=== PATIENT | female | born 1965 | race Caucasian/White ===

== ENCOUNTER 2017-08-16 09:10 | Inpatient (IN) | payer MEDICARE, OTHER ==
[2017-08-16] MEDS: ALBUTEROL SULFATE 2.5 MG/3 ML NEBU. CONT NEB (10:01)
[2017-08-16] MEDS: methylPREDNISolone SOD SUCC PF 125 MG/2 ML VIAL. IV (10:09)
[2017-08-16 10:14] LABS: BASO % 0 % (0-3); EOS % 0 % (0-3); HEMATOCRIT 42.1 % (36.0-47.0); HEMOGLOBIN 14.1 g/dL (12.0-15.5); LYMPH # 0.6 x10^3/uL (1.0-4.8); LYMPH % 12 % (24-48); MEAN CORPUSCULAR HEMOGLOBIN 29 pg (25-35); MEAN CORPUSCULAR HGB CONC 34 g/dL (31-37); MEAN CORPUSCULAR VOLUME 86 fL (79-100); MONO # 1.2 x10^3/uL (0.0-1.1); MONO % 24 % (0-9); NEUT # 3.1 x10^3uL (1.8-7.7); NEUT % 63 % (31-73); PLATELET COUNT 259 x10^3/uL (140-400); RED BLOOD COUNT 4.93 x10^6/uL (3.50-5.40); RED CELL DISTRIBUTION WIDTH 15.2 % (11.5-14.5); WHITE BLOOD COUNT 4.9 x10^3/uL (4.0-11.0)
[2017-08-16 10:18] LABS: ADD MAN DIFF? YES
[2017-08-16 10:22] LABS: ANION GAP 11 (6-14); BLOOD UREA NITROGEN 8 mg/dL (7-20); BUN/CREATININE RATIO 16 (6-20); CALCIUM 8.4 mg/dL (8.5-10.1); CARBON DIOXIDE 26 mmol/L (21-32); CHLORIDE 95 mmol/L (98-107); CREATININE 0.5 mg/dL (0.6-1.0); GFR 129.6; GLUCOSE 109 mg/dL (70-99); SODIUM 132 mmol/L (136-145)
[2017-08-16 10:28] LABS: ALBUMIN 3.2 g/dL (3.4-5.0); ALBUMIN/GLOBULIN RATIO 0.9 (1.0-1.7); ALK PHOS 64 U/L (46-116); ALT (SGPT) 25 U/L (14-59); AST (SGOT) 34 U/L (15-37); TOTAL BILIRUBIN 0.2 mg/dL (0.2-1.0); TOTAL PROTEIN 6.6 g/dL (6.4-8.2)
[2017-08-16 10:29] LABS: POTASSIUM 4.5 mmol/L (3.5-5.1)
[2017-08-16 10:30] LABS: LACTIC ACID 0.8 mmol/L (0.4-2.0)
[2017-08-16] MEDS ORDERED: VANCOMYCIN 1.5 GM in IV DEXTROSE 5 %-0.2 % NACL 500 ML IV (11:45)
[2017-08-16] MEDS: VANCOMYCIN 1.5 GM in IV DEXTROSE 5 %-0.2 % NACL 500 ML IV (12:10)
[2017-08-16] MEDS: VANCOMYCIN PER PHARMACY MC (13:30)
[2017-08-16 13:44] LABS: % BANDS 6 % (0-9); % LYMPHS 14 % (24-48); % MONOS 10 % (0-10); % SEGS 70 % (35-66); PLT ESTIMATE ADEQUATE (ADEQUATE)
[2017-08-16] MEDS ORDERED: ONDANSETRON PF 4 MG/2 ML VIAL. IV (13:45)
[2017-08-16] MEDS: IV NORMAL SALINE 1000ML BAG 1,000 ML IV ×2 (16:05→22:10)
[2017-08-16] MEDS ORDERED: CEFEPIME HCL 1 GM in IV DEXTROSE 5% 50 ML IV (21:00)
[2017-08-16] MEDS: CEFEPIME HCL IV Push 1 GM VIAL. IVP (21:58)
[2017-08-16] MEDS: IPRATRPIUM/ALBUTEROL 0.5/2.5MG 3 ML NEBU. NEB (23:16)
[2017-08-17] MEDS ORDERED: VANCOMYCIN 1 GM in IV 1/2 NORMAL SALINE 250 ML IV
[2017-08-17] MEDS: BENZOCAINE/MENTHOL LOZENGE. PO ×3 (00:40→17:09)
[2017-08-17] MEDS: IV NORMAL SALINE 1000ML BAG 1,000 ML IV (01:55)
[2017-08-17] MEDS: HYDROcodone/APAP 5/325MG 1 TAB TABLET PO ×4 (01:59→21:13)
[2017-08-17 05:02] LABS: ADD MAN DIFF? NO
[2017-08-17 05:34] LABS: BASO % 0 % (0-3); EOS % 0 % (0-3); HEMOGLOBIN 13.7 g/dL (12.0-15.5); LYMPH # 0.6 x10^3/uL (1.0-4.8); LYMPH % 19 % (24-48); MEAN CORPUSCULAR HEMOGLOBIN 29 pg (25-35); MEAN CORPUSCULAR HGB CONC 33 g/dL (31-37); MEAN CORPUSCULAR VOLUME 86 fL (79-100); MONO # 0.6 x10^3/uL (0.0-1.1); MONO % 20 % (0-9); NEUT # 1.9 x10^3uL (1.8-7.7); NEUT % 61 % (31-73); PLATELET COUNT 268 x10^3/uL (140-400); RED BLOOD COUNT 4.76 x10^6/uL (3.50-5.40); RED CELL DISTRIBUTION WIDTH 15.3 % (11.5-14.5); WHITE BLOOD COUNT 3.1 x10^3/uL (4.0-11.0)
[2017-08-17 06:06] LABS: ANION GAP 8 (6-14); BLOOD UREA NITROGEN 8 mg/dL (7-20); CALCIUM 8.5 mg/dL (8.5-10.1); CARBON DIOXIDE 28 mmol/L (21-32); CHLORIDE 100 mmol/L (98-107); CREATININE 0.4 mg/dL (0.6-1.0); GFR 167.6; GLUCOSE 132 mg/dL (70-99); POTASSIUM 4.5 mmol/L (3.5-5.1); SODIUM 136 mmol/L (136-145)
[2017-08-17] MEDS: IPRATRPIUM/ALBUTEROL 0.5/2.5MG 3 ML NEBU. NEB ×4 (07:24→20:10)
[2017-08-17] MEDS: CEFEPIME HCL IV Push 1 GM VIAL. IVP ×2 (08:02→21:05)
[2017-08-17] MEDS: methylPREDNISolone SOD SUCC PF 40 MG/ML VIAL. IV ×2 (09:44→21:05)
[2017-08-17] MEDS: PANTOPRAZOLE 40 MG TABLET.DR. PO (09:45)
[2017-08-17] MEDS: ENOXAPARIN 40 MG/0.4 ML SYRINGE. SQ (09:45)
[2017-08-17] MEDS: BUDESONIDE 0.5 MG/2 ML NEBU. NEB ×2 (11:06→20:10)
[2017-08-17] MEDS: GADOBUTROL 7.5 MMOL/7.5 ML VIAL IV (13:47)
[2017-08-17] MEDS ORDERED: CEFEPIME HCL 1 GM in IV DEXTROSE 5% 50 ML IV (21:00)
[2017-08-17] MEDS: LACTOBACILLUS RHAMNOSUS GG 1 CAPSULE. PO (21:05)
[2017-08-18 00:05] LABS: AMPHETAMINE/METHAMPHETAMINE NEG (NEG); BARBITURATES NEG (NEG); BENZODIAZEPINES POS (NEG); CANNABINOIDS NEG (NEG); COCAINE NEG (NEG); ETHANOL, URINE NEG (NEG); METHADONE NEG (NEG); OPIATES POS (NEG); PHENCYCLIDINE NEG (NEG)
[2017-08-18 05:20] LABS: ADD MAN DIFF? NO
[2017-08-18 05:34] LABS: BASO % 0 % (0-3); EOS % 0 % (0-3); HEMATOCRIT 42.5 % (36.0-47.0); HEMOGLOBIN 14.1 g/dL (12.0-15.5); LYMPH # 0.7 x10^3/uL (1.0-4.8); LYMPH % 16 % (24-48); MEAN CORPUSCULAR HEMOGLOBIN 29 pg (25-35); MEAN CORPUSCULAR HGB CONC 33 g/dL (31-37); MEAN CORPUSCULAR VOLUME 86 fL (79-100); MONO # 0.5 x10^3/uL (0.0-1.1); MONO % 11 % (0-9); NEUT # 3.2 x10^3uL (1.8-7.7); NEUT % 73 % (31-73); PLATELET COUNT 293 x10^3/uL (140-400); RED BLOOD COUNT 4.94 x10^6/uL (3.50-5.40); RED CELL DISTRIBUTION WIDTH 15.7 % (11.5-14.5); WHITE BLOOD COUNT 4.3 x10^3/uL (4.0-11.0)
[2017-08-18 06:00] LABS: ANION GAP 4 (6-14); BLOOD UREA NITROGEN 10 mg/dL (7-20); CARBON DIOXIDE 32 mmol/L (21-32); CHLORIDE 99 mmol/L (98-107); CREATININE 0.5 mg/dL (0.6-1.0); GFR 129.6; GLUCOSE 140 mg/dL (70-99); POTASSIUM 4.4 mmol/L (3.5-5.1); SODIUM 135 mmol/L (136-145)
[2017-08-18] MEDS: BUDESONIDE 0.5 MG/2 ML NEBU. NEB ×2 (07:13→19:44)
[2017-08-18] MEDS: IPRATRPIUM/ALBUTEROL 0.5/2.5MG 3 ML NEBU. NEB ×4 (07:14→19:44)
[2017-08-18] MEDS: ENOXAPARIN 40 MG/0.4 ML SYRINGE. SQ (08:12)
[2017-08-18] MEDS: LACTOBACILLUS RHAMNOSUS GG 1 CAPSULE. PO ×2 (08:12→21:33)
[2017-08-18] MEDS: HYDROcodone/APAP 5/325MG 1 TAB TABLET PO ×3 (08:12→21:34)
[2017-08-18] MEDS: CEFEPIME HCL IV Push 1 GM VIAL. IVP (08:13)
[2017-08-18] MEDS: PANTOPRAZOLE 40 MG TABLET.DR. PO (08:13)
[2017-08-18] MEDS: methylPREDNISolone SOD SUCC PF 40 MG/ML VIAL. IV ×2 (08:13→21:34)
[2017-08-18] MEDS: DOXYCYCLINE HYCLATE 100 MG TABLET PO ×2 (13:10→21:33)
[2017-08-18] MEDS: clonazePAM 0.5 MG TABLET PO (16:47)
[2017-08-18] MEDS: CIPROFLOXACIN HCL 250 MG TABLET. PO (21:33)
[2017-08-19 06:17] LABS: ANION GAP 4 (6-14); BLOOD UREA NITROGEN 13 mg/dL (7-20); CARBON DIOXIDE 34 mmol/L (21-32); CHLORIDE 98 mmol/L (98-107); CREATININE 0.5 mg/dL (0.6-1.0); GFR 129.6; GLUCOSE 137 mg/dL (70-99); SODIUM 136 mmol/L (136-145)
[2017-08-19] MEDS: BUDESONIDE 0.5 MG/2 ML NEBU. NEB ×2 (07:19→18:13)
[2017-08-19] MEDS: IPRATRPIUM/ALBUTEROL 0.5/2.5MG 3 ML NEBU. NEB ×4 (07:19→18:13)
[2017-08-19] MEDS: clonazePAM 0.5 MG TABLET PO ×2 (08:10→21:16)
[2017-08-19] MEDS: CIPROFLOXACIN HCL 250 MG TABLET. PO ×2 (08:10→21:17)
[2017-08-19] MEDS: PANTOPRAZOLE 40 MG TABLET.DR. PO (08:10)
[2017-08-19] MEDS: LACTOBACILLUS RHAMNOSUS GG 1 CAPSULE. PO ×2 (08:10→21:17)
[2017-08-19] MEDS: methylPREDNISolone SOD SUCC PF 40 MG/ML VIAL. IV ×2 (08:10→21:17)
[2017-08-19] MEDS: DOXYCYCLINE HYCLATE 100 MG TABLET PO ×2 (08:11→21:17)
[2017-08-19] MEDS: ENOXAPARIN 40 MG/0.4 ML SYRINGE. SQ (10:00)
[2017-08-19] MEDS: FLU VACC QS2017-18 (36MOS+)/PF 0.5 ML SYRINGE. VAX IM (10:46)
[2017-08-19] MEDS: HYDROcodone/APAP 5/325MG 1 TAB TABLET PO (21:17)
[2017-08-20] MEDS: IPRATRPIUM/ALBUTEROL 0.5/2.5MG 3 ML NEBU. NEB ×3 (06:03→15:21)
[2017-08-20] MEDS: BUDESONIDE 0.5 MG/2 ML NEBU. NEB (06:03)
[2017-08-20 06:35] LABS: ANION GAP 7 (6-14); BLOOD UREA NITROGEN 13 mg/dL (7-20); CALCIUM 9.3 mg/dL (8.5-10.1); CARBON DIOXIDE 31 mmol/L (21-32); CHLORIDE 98 mmol/L (98-107); CREATININE 0.6 mg/dL (0.6-1.0); GLUCOSE 148 mg/dL (70-99); POTASSIUM 4.1 mmol/L (3.5-5.1); SODIUM 136 mmol/L (136-145)
[2017-08-20] MEDS ORDERED: LIDOCAINE 2%/EPI 1:100,000 20 ML VIAL. IJ (07:30)
[2017-08-20] MEDS: LACTOBACILLUS RHAMNOSUS GG 1 CAPSULE. PO (07:48)
[2017-08-20] MEDS: methylPREDNISolone SOD SUCC PF 40 MG/ML VIAL. IV (07:48)
[2017-08-20] MEDS: clonazePAM 0.5 MG TABLET PO (07:49)
[2017-08-20] MEDS: PANTOPRAZOLE 40 MG TABLET.DR. PO (07:49)
[2017-08-20] MEDS: CIPROFLOXACIN HCL 250 MG TABLET. PO (07:49)
[2017-08-20] MEDS: DOXYCYCLINE HYCLATE 100 MG TABLET PO (07:49)
[2017-08-20] MEDS: HYDROcodone/APAP 5/325MG 1 TAB TABLET PO (07:54)
[2017-08-20] MEDS: ENOXAPARIN 40 MG/0.4 ML SYRINGE. SQ (10:00)
== END 2017-08-20 17:45 | disposition home or self-care (01) | DRG 177 ==
LOC: ER 09:10 → 6 SOUTH 12:53
DX: J69.0 Pneumonitis due to inhalation of food and vomit (principal); J96.01 Acute respiratory failure with hypoxia; E46 Unspecified protein-calorie malnutrition; E87.1 Hypo-osmolality and hyponatremia; J44.0 Chronic obstructive pulmonary disease with (acute) lower respiratory infection; J44.1 Chronic obstructive pulmonary disease with (acute) exacerbation; L02.414 Cutaneous abscess of left upper limb; J18.9 Pneumonia, unspecified organism; I11.0 Hypertensive heart disease with heart failure; I50.9 Heart failure, unspecified; E87.8 Other disorders of electrolyte and fluid balance, not elsewhere classified; D72.819 Decreased white blood cell count, unspecified; Z68.25 Body mass index [BMI] 25.0-25.9, adult; F17.210 Nicotine dependence, cigarettes, uncomplicated; F41.0 Panic disorder [episodic paroxysmal anxiety]; J20.9 Acute bronchitis, unspecified; K21.9 Gastro-esophageal reflux disease without esophagitis; M79.7 Fibromyalgia; Z82.49 Family history of ischemic heart disease and other diseases of the circulatory system; Z83.3 Family history of diabetes mellitus; Z87.01 Personal history of pneumonia (recurrent); Z91.19 Patient's noncompliance with other medical treatment and regimen; F12.10 Cannabis abuse, uncomplicated; F15.10 Other stimulant abuse, uncomplicated; F32.9 Major depressive disorder, single episode, unspecified; G62.9 Polyneuropathy, unspecified; G89.29 Other chronic pain; Z88.0 Allergy status to penicillin; Z88.8 Allergy status to other drugs, medicaments and biological substances; R73.9 Hyperglycemia, unspecified
CPT/HCPCS: 36415; 71046; 71552; 73090; 80048; 80053; 80307; 83605; 85007; 85025; 90686; 93005; 94618; 94640; 94644; 94760; 96365; 96375; 97161-GP; 97165-GO; 99285; 99285-25; A9585; J0692; J1650; J2920; J2930; J3370; J7030; J7613; J7620; J7626

== ENCOUNTER → 2017-10-27 | Outpatient (CLI) | payer MEDICARE, OTHER | END | disposition home or self-care (01) | LOC: RAD 16:14 | DX: M43.16 Spondylolisthesis, lumbar region (principal); M12.88 Other specific arthropathies, not elsewhere classified, other specified site; I11.0 Hypertensive heart disease with heart failure; I50.9 Heart failure, unspecified; J44.1 Chronic obstructive pulmonary disease with (acute) exacerbation; G89.29 Other chronic pain; Z87.891 Personal history of nicotine dependence | CPT/HCPCS: 72100 ==

== ENCOUNTER → 2017-12-10 | Outpatient (CLI) | payer MEDICARE, OTHER | END | disposition home or self-care (01) | LOC: RAD 19:06 | DX: J44.1 Chronic obstructive pulmonary disease with (acute) exacerbation (principal) | CPT/HCPCS: 71046 ==

== ENCOUNTER 2018-03-27 14:25 | Inpatient (IN) | payer MEDICARE, OTHER ==
[~2018-03-27] VITALS: Ht 157.5 cm; Wt 71.9 kg
[~2018-03-27 14:25] MED LIST: AMIT50TA PO; BACL20TA PO; CHLO500T14 PO; CLON0.5T11 PO; CYAN500T PO; CYCL10TA2 PO; GABA800T2 PO; GELA650C3 PO; HYDR-2758 PO; OMEP40CA5 PO; PROM118S5 PO; QUET25TA PO; QUET50TA PO; TRAM50TA PO
--- NOTE | 2018-03-27 15:01 | PHYS DOC ---
Past Medical History Past Medical History: Anxiety, CHF, COPD, Fibromyalgia, Pneumonia, Other Additional Past Medical Histor: HOLE IN HEART,CHRONIC PAIN,PANIC ATTACKS Past Surgical History: Other Additional Past Surgical Histo: lumpectomy, hernia Alcohol Use: Occasionally Drug Use: Marijuana, Methamphetamine Adult General Chief Complaint Chief Complaint: low bp in clinic HPI HPI 52-year-old female presenting to the emergency department after being found to have a low blood pressure in clinic and sent here by EMS. Patient has history of emphysema and fibromyalgia and presented to clinic today for refill of her medications. She does not have any symptoms. In clinic she was found to have a mildly low blood pressure of around 90 systolic. EMS was called. Upon EMS arrival the patient's blood pressure was 105 systolic and the patient remained asymptomatic. She comes in after getting fluids. She reports no symptoms and is wondering why they sent her here. ros neg for chest pain shortness of breath nausea vomiting diaphoresis fevers chills headache syncope. She denies abdominal pain dysuria hematuria back pain or any new rashes. All other review of systems is negative unless otherwise noted in history of present illness. ED course: 52-year-old female who is asymptomatic and was sent here after having one low blood pressure. Here she is 105 systolic. Otherwise heart rate is within normal lives. She had baseline requires 3 L by nasal cannula at home and has oxygen at home. No increased need for oxygen here. Chest x-ray EKG and blood work obtained. Urine analysis shows UTI. Given her low blood pressure in clinic, it is prudent to admit the patient with IV antibiotics for monitoring. The patient's blood pressure improved significantly after a small fluid bolus by EMS. Dr. Houser accepts patient for admission. Basic bridge orders placed. Review of Systems Review of Systems SEE ABOVE. Current Medications Current Medications Current Medications Medications (Trade) Dose Ordered Sig/Pablito Start Time Stop Time Status Last Admin Dose Admin Acetaminophen (Tylenol) 650 mg PRN Q6HRS PRN 03/27/18 18:00 Docusate Sodium (Colace) 100 mg PRN DAILY PRN 03/27/18 18:00 Ondansetron HCl (Zofran) 4 mg PRN Q6HRS PRN 03/27/18 18:00 Sodium Chloride 1,000 ml @ 100 mls/hr Q10H 03/27/18 17:00 03/28/18 16:59 Allergies Allergies Allergies Coded Allergies Type Severity Reaction Last Updated Verified Penicillins Allergy Intermediate 08/17/17 Yes cefdinir Allergy Intermediate 08/17/17 Yes oxycodone HCl Allergy Intermediate 08/16/17 Yes Physical Exam Physical Exam SEE ABOVE Constitutional: Well developed, well nourished, no acute distress, non-toxic appearance. HENT: Normocephalic, atraumatic, bilateral external ears normal, oropharynx moist, no oral exudates, nose normal. [] Eyes: PERRLA, EOMI, conjunctiva normal, no discharge. Neck: Normal range of motion, no tenderness, supple, no stridor. [] Cardiovascular:Heart rate regular rhythm, no murmur Lungs & Thorax: mild wheezing. breathing comfortably without increased work of breathing. Abdomen: Bowel sounds normal, soft, no tenderness, no masses, no pulsatile masses. [] Skin: Warm, dry, no erythema, no rash. Back: No tenderness, no CVA tenderness. [] Extremities: No tenderness, no cyanosis, no clubbing, ROM intact, no edema. [] Neurologic: Alert and oriented X 3, normal motor function, normal sensory function, no focal deficits noted. [] Psychologic: Affect normal, judgement normal, mood normal. [] Current Patient Data Vital Signs Vital Signs Date Time Temp Pulse Resp B/P (MAP) Pulse Ox O2 Delivery O2 Flow Rate FiO2 03/27/18 17:00 68 20 120/58 (78) 100 03/27/18 14:38 97.8 Room Air 97.8 Lab Values Laboratory Tests Test 03/27/18 15:21 03/27/18 15:55 Urine Collection Type Unknown Urine Color Yellow Urine Clarity Clear Urine pH 6.5 Urine Specific [place] 1.010 Urine Protein Negative mg/dL (NEG-TRACE) Urine Glucose (UA) Negative mg/dL (NEG) Urine Ketones (Stick) Negative mg/dL (NEG) Urine Blood Negative (NEG) Urine Nitrite Positive (NEG) Urine Bilirubin Negative (NEG) Urine Urobilinogen Dipstick 0.2 mg/dL (0.2 mg/dL) Urine Leukocyte Esterase Large (NEG) Urine RBC 0 /HPF (0-2) Urine WBC >40 /HPF (0-4) Urine Squamous Epithelial Cells Mod /LPF Urine Bacteria Many /HPF (0-FEW) Urine Hyaline Casts Moderate /HPF Urine Mucus Slight /LPF White Blood Count 9.9 x10^3/uL (4.0-11.0) Red Blood Count 4.82 x10^6/uL (3.50-5.40) Hemoglobin 13.9 g/dL (12.0-15.5) Hematocrit 41.6 % (36.0-47.0) Mean Corpuscular Volume 86 fL (79-100) Mean Corpuscular Hemoglobin 29 pg (25-35) Mean Corpuscular Hemoglobin Concent 34 g/dL (31-37) Red Cell Distribution Width 17.3 % (11.5-14.5) H Platelet Count 305 x10^3/uL (140-400) Neutrophils (%) (Auto) 63 % (31-73) Lymphocytes (%) (Auto) 20 % (24-48) L Monocytes (%) (Auto) 11 % (0-9) H Eosinophils (%) (Auto) 5 % (0-3) H Basophils (%) (Auto) 1 % (0-3) Neutrophils # (Auto) 6.2 x10^3uL (1.8-7.7) Lymphocytes # (Auto) 2.0 x10^3/uL (1.0-4.8) Monocytes # (Auto) 1.1 x10^3/uL (0.0-1.1) Eosinophils # (Auto) 0.5 x10^3/uL (0.0-0.7) Basophils # (Auto) 0.1 x10^3/uL (0.0-0.2) Sodium Level 140 mmol/L (136-145) Potassium Level 4.2 mmol/L (3.5-5.1) Chloride Level 101 mmol/L (98-107) Carbon Dioxide Level 34 mmol/L (21-32) H Anion Gap 5 (6-14) L Blood Urea Nitrogen 8 mg/dL (7-20) Creatinine 0.7 mg/dL (0.6-1.0) Estimated GFR (Cockcroft-Gault) 87.9 Glucose Level 102 mg/dL (70-99) H Calcium Level 9.1 mg/dL (8.5-10.1) Total Bilirubin 0.1 mg/dL (0.2-1.0) L Direct Bilirubin < 0.1 mg/dL (0.0-0.2) Aspartate Amino Transferase (AST) 12 U/L (15-37) L Alanine Aminotransferase (ALT) 21 U/L (14-59) Alkaline Phosphatase 87 U/L (46-116) Troponin I Quantitative < 0.017 ng/mL (0.000-0.055) Total Protein 6.3 g/dL (6.4-8.2) L Albumin 3.3 g/dL (3.4-5.0) L Lipase 72 U/L (73-393) L Laboratory Tests 03/27/18 15:55 Laboratory Tests 03/27/18 15:55 EKG EKG [] Radiology/Procedures Radiology/Procedures [] Course & Med Decision Making Course & Med Decision Making Pertinent Labs and Imaging studies reviewed. (See chart for details) [] Dragon Disclaimer Dragon Disclaimer This electronic medical record was generated, in whole or in part, using a voice recognition dictation system. Departure Departure Impression: Primary Impression: Encounter for medical screening examination Additional Impressions: UTI (urinary tract infection) Low blood pressure Disposition: ADMITTED INPATIENT Admitting Physician: Xie. Silverman Condition: STABLE Referrals: JOVI GARDNER MD (PCP) Problem Qualifiers WOODROW HE MD Mar 27, 2018 15:01
--- NOTE | 2018-03-27 15:24 | RAD ---
EXAM: Chest, single view. HISTORY: Cough. COMPARISON: 12/10/2017 FINDINGS: A frontal view of the chest is obtained. There is no infiltrate, pleural effusion or pneumothorax. The heart is normal in size for portable technique. IMPRESSION: No acute pulmonary finding. Electronically signed by: Malgorzata Burton MD (03/27/2018 3:20 PM) [facility]
[2018-03-27 15:29] LABS: BILIRUBIN,URINE NEGATIVE (NEG); CLARITY,URINE CLEAR; COLOR,URINE YELLOW; NITRITE,URINE POSITIVE (NEG); PH,URINE 6.5; PROTEIN,URINE NEGATIVE (NEG-TRACE); UROBILINOGEN,URINE 0.2 mg/dL (0.2 mg/dL)
[2018-03-27] MEDS ORDERED: IV NORMAL SALINE 500ML BAG 500 ML IV ONE (15:30)
[2018-03-27 15:39] LABS: BACTERIA,URINE MANY /HPF (0-FEW); RBC,URINE 0 /HPF (0-2); SQUAMOUS EPITHELIAL CELL,UR MOD /LPF; WBC,URINE >40 /HPF (0-4)
[2018-03-27 15:40] LABS: HYALINE CASTS, URINE MODERATE /HPF
[2018-03-27 16:10] LABS: BASO # 0.1 x10^3/uL (0.0-0.2); BASO % 1 % (0-3); EOS # 0.5 x10^3/uL (0.0-0.7); EOS % 5 % (0-3); HEMATOCRIT 41.6 % (36.0-47.0); HEMOGLOBIN 13.9 g/dL (12.0-15.5); LYMPH % 20 % (24-48); MEAN CORPUSCULAR HEMOGLOBIN 29 pg (25-35); MEAN CORPUSCULAR HGB CONC 34 g/dL (31-37); MEAN CORPUSCULAR VOLUME 86 fL (79-100); MONO # 1.1 x10^3/uL (0.0-1.1); MONO % 11 % (0-9); NEUT # 6.2 x10^3uL (1.8-7.7); NEUT % 63 % (31-73); PLATELET COUNT 305 x10^3/uL (140-400); RED BLOOD COUNT 4.82 x10^6/uL (3.50-5.40); RED CELL DISTRIBUTION WIDTH 17.3 % (11.5-14.5); WHITE BLOOD COUNT 9.9 x10^3/uL (4.0-11.0)
[2018-03-27 16:14] LABS: ANION GAP 5 (6-14); BLOOD UREA NITROGEN 8 mg/dL (7-20); CALCIUM 9.1 mg/dL (8.5-10.1); CARBON DIOXIDE 34 mmol/L (21-32); CHLORIDE 101 mmol/L (98-107); CREATININE 0.7 mg/dL (0.6-1.0); GFR 87.9; GLUCOSE 102 mg/dL (70-99); POTASSIUM 4.2 mmol/L (3.5-5.1); SODIUM 140 mmol/L (136-145)
[2018-03-27 16:21] LABS: ALBUMIN 3.3 g/dL (3.4-5.0); ALK PHOS 87 U/L (46-116); ALT (SGPT) 21 U/L (14-59); AST (SGOT) 12 U/L (15-37); DIRECT BILIRUBIN < 0.1 mg/dL (0.0-0.2); LIPASE 72 U/L (73-393); TOTAL BILIRUBIN 0.1 mg/dL (0.2-1.0); TOTAL PROTEIN 6.3 g/dL (6.4-8.2)
[2018-03-27] MEDS ORDERED: ONDANSETRON PF 4 MG/2 ML VIAL. IV PRN ×2 (16:45→18:00)
[2018-03-27] MEDS ORDERED: ACETAMINOPHEN 325 MG TABLET. PO PRN (18:00)
[2018-03-27] MEDS ORDERED: DOCUSATE SODIUM 100 MG CAPSULE. PO PRN (18:00)
[2018-03-27 19:05] VITALS: BP 106/56
[2018-03-27] MEDS ORDERED: INFLUENZA VAX SCREEN BY RX. MC PRN (20:00)
[2018-03-27] MEDS ORDERED: MOME13HF IH (20:06)
[2018-03-27] MEDS ORDERED: ALBU8HFA2 IH (20:06)
[2018-03-27] MEDS: IV NORMAL SALINE 1000ML BAG 1,000 ML IV SCH (20:27)
[2018-03-27] MEDS ORDERED: traMADol 50 MG TABLET PO PRN (20:30)
[2018-03-27] MEDS ORDERED: ALBUTEROL SULFATE 8GM INHALER. IH PRN (20:30)
--- NOTE | 2018-03-27 20:33 | PDOC1 ---
History and Physical Date of Admission Date of Admission 03/27/18 Identification/Chief Complaint Chief Complaint low bp, weakness Source Source: Chart review, Patient History of Present Illness History of Present Illness 52-year-old female came to ER with low BP. Pt went to PCP office for medication refill, was found BP low as 90s? ERP told me 70s. as per ERP, EMS was called, and BY 105 systolic and pt has no symptom. Pt denies dehydration, no N/V or diahrea, said she took all her meds together in am, including pain meds, flexril, gabapentin , etc according to med rec. She feels generalized weakness recently. denies dysuria, but said has frequent urination. Patient has history of emphysema and fibromyalgia. ERP said gave 500cc NS , pt BP is stable. Pt is smoker, <1PPD, has home o2, supposed to be 3L in the daytime, but pt didnot use it since she thought she might not need it. denies worsening sob or cough. Past Medical History Past Medical History fibromyalgia Past Surgical History Past Surgical History: Hernia Repair Family History Family History: Hypertension Social History Smoke: <1 pack per day ALCOHOL: social Drugs: Cocaine, Marijuana Current Problem List Problem List Problems Medical Problems: (1) Encounter for medical screening examination Status: Acute (2) Low blood pressure Status: Acute (3) UTI (urinary tract infection) Status: Acute Current Medications Current Medications Current Medications Medications (Trade) Dose Ordered Sig/Pablito Start Time Stop Time Status Last Admin Dose Admin Acetaminophen (Tylenol) 650 mg PRN Q6HRS PRN 03/27/18 18:00 Docusate Sodium (Colace) 100 mg PRN DAILY PRN 03/27/18 18:00 Influenza Virus Vaccine (Afluria Trivalent [id number] Syringe) 0.5 ml ONCE ONCE 03/28/18 09:00 03/28/18 09:01 Info (Do NOT chart on this placeholder) 1 each PRN 1X PRN 03/27/18 20:00 UNV Ondansetron HCl (Zofran) 4 mg PRN Q6HRS PRN 03/27/18 18:00 Sodium Chloride 1,000 ml @ 100 mls/hr Q10H 03/27/18 17:00 03/28/18 16:59 Allergies Allergies Allergies Coded Allergies Type Severity Reaction Last Updated Verified Penicillins Allergy Intermediate 08/17/17 Yes cefdinir Allergy Intermediate 08/17/17 Yes divalproex sodium Allergy Intermediate 03/27/18 Yes oxycodone HCl Allergy Intermediate 08/16/17 Yes Uncoded Allergies Type Severity Reaction Last Updated Verified LIBRAX Allergy Unknown 03/27/18 ROS Review of System CONSTITUTIONAL: No fever or chills EYES: No recent changes SKIN: No rash or itching CARDIOVASCULAR: No chest pain, syncope, palpitations, or edema RESPIRATORY: No SOB or cough GASTROINTESTINAL: No nausea, vomiting or abdominal pain NEUROLOGICAL: No headaches or weakness ENDOCRINE: No cold or heat intolerance GENITOURINARY: No urgency or frequency of urination MUSCULOSKELETAL: No back pain or joint pain LYMPHATICS: No enlarged lymph nodes PSYCHIATRIC: No anxiety or depression Physical Exam Physical Exam GEN.: No apparent distress. Alert and oriented. HEENT: Head is normocephalic, atraumatic NECK: Supple. LUNGS: Clear to auscultation. HEART: RRR, S1, S2 present. Peripheral pulses intact ABDOMEN: Soft, nontender. Positive bowel sounds. EXTREMITIES: Without any cyanosis. NEUROLOGIC: Normal speech, normal tone PSYCHIATRIC: Normal affect, normal mood. SKIN: No ulcerations Vitals Vitals Vital Signs Date Time Temp Pulse Resp B/P (MAP) Pulse Ox O2 Delivery O2 Flow Rate FiO2 03/27/18 19:05 98.4 89 20 106/56 (73) 98 Nasal Cannula 3.0 98.4 Labs Labs Laboratory Tests Test 03/27/18 15:21 03/27/18 15:55 Urine Collection Type Unknown Urine Color Yellow Urine Clarity Clear Urine pH 6.5 Urine Specific [place] 1.010 Urine Protein Negative mg/dL (NEG-TRACE) Urine Glucose (UA) Negative mg/dL (NEG) Urine Ketones (Stick) Negative mg/dL (NEG) Urine Blood Negative (NEG) Urine Nitrite Positive (NEG) Urine Bilirubin Negative (NEG) Urine Urobilinogen Dipstick 0.2 mg/dL (0.2 mg/dL) Urine Leukocyte Esterase Large (NEG) Urine RBC 0 /HPF (0-2) Urine WBC >40 /HPF (0-4) Urine Squamous Epithelial Cells Mod /LPF Urine Bacteria Many /HPF (0-FEW) Urine Hyaline Casts Moderate /HPF Urine Mucus Slight /LPF White Blood Count 9.9 x10^3/uL (4.0-11.0) Red Blood Count 4.82 x10^6/uL (3.50-5.40) Hemoglobin 13.9 g/dL (12.0-15.5) Hematocrit 41.6 % (36.0-47.0) Mean Corpuscular Volume 86 fL (79-100) Mean Corpuscular Hemoglobin 29 pg (25-35) Mean Corpuscular Hemoglobin Concent 34 g/dL (31-37) Red Cell Distribution Width 17.3 % (11.5-14.5) Platelet Count 305 x10^3/uL (140-400) Neutrophils (%) (Auto) 63 % (31-73) Lymphocytes (%) (Auto) 20 % (24-48) Monocytes (%) (Auto) 11 % (0-9) Eosinophils (%) (Auto) 5 % (0-3) Basophils (%) (Auto) 1 % (0-3) Neutrophils # (Auto) 6.2 x10^3uL (1.8-7.7) Lymphocytes # (Auto) 2.0 x10^3/uL (1.0-4.8) Monocytes # (Auto) 1.1 x10^3/uL (0.0-1.1) Eosinophils # (Auto) 0.5 x10^3/uL (0.0-0.7) Basophils # (Auto) 0.1 x10^3/uL (0.0-0.2) Sodium Level 140 mmol/L (136-145) Potassium Level 4.2 mmol/L (3.5-5.1) Chloride Level 101 mmol/L (98-107) Carbon Dioxide Level 34 mmol/L (21-32) Anion Gap 5 (6-14) Blood Urea Nitrogen 8 mg/dL (7-20) Creatinine 0.7 mg/dL (0.6-1.0) Estimated GFR (Cockcroft-Gault) 87.9 Glucose Level 102 mg/dL (70-99) Calcium Level 9.1 mg/dL (8.5-10.1) Total Bilirubin 0.1 mg/dL (0.2-1.0) Direct Bilirubin < 0.1 mg/dL (0.0-0.2) Aspartate Amino Transf (AST/SGOT) 12 U/L (15-37) Alanine Aminotransferase (ALT/SGPT) 21 U/L (14-59) Alkaline Phosphatase 87 U/L (46-116) Troponin I Quantitative < 0.017 ng/mL (0.000-0.055) Total Protein 6.3 g/dL (6.4-8.2) Albumin 3.3 g/dL (3.4-5.0) Lipase 72 U/L (73-393) Laboratory Tests Test 03/27/18 15:21 03/27/18 15:55 Urine Collection Type Unknown Urine Color Yellow Urine Clarity Clear Urine pH 6.5 Urine Specific [place] 1.010 Urine Protein Negative mg/dL (NEG-TRACE) Urine Glucose (UA) Negative mg/dL (NEG) Urine Ketones (Stick) Negative mg/dL (NEG) Urine Blood Negative (NEG) Urine Nitrite Positive (NEG) Urine Bilirubin Negative (NEG) Urine Urobilinogen Dipstick 0.2 mg/dL (0.2 mg/dL) Urine Leukocyte Esterase Large (NEG) Urine RBC 0 /HPF (0-2) Urine WBC >40 /HPF (0-4) Urine Squamous Epithelial Cells Mod /LPF Urine Bacteria Many /HPF (0-FEW) Urine Hyaline Casts Moderate /HPF Urine Mucus Slight /LPF White Blood Count 9.9 x10^3/uL (4.0-11.0) Red Blood Count 4.82 x10^6/uL (3.50-5.40) Hemoglobin 13.9 g/dL (12.0-15.5) Hematocrit 41.6 % (36.0-47.0) Mean Corpuscular Volume 86 fL (79-100) Mean Corpuscular Hemoglobin 29 pg (25-35) Mean Corpuscular Hemoglobin Concent 34 g/dL (31-37) Red Cell Distribution Width 17.3 % (11.5-14.5) Platelet Count 305 x10^3/uL (140-400) Neutrophils (%) (Auto) 63 % (31-73) Lymphocytes (%) (Auto) 20 % (24-48) Monocytes (%) (Auto) 11 % (0-9) Eosinophils (%) (Auto) 5 % (0-3) Basophils (%) (Auto) 1 % (0-3) Neutrophils # (Auto) 6.2 x10^3uL (1.8-7.7) Lymphocytes # (Auto) 2.0 x10^3/uL (1.0-4.8) Monocytes # (Auto) 1.1 x10^3/uL (0.0-1.1) Eosinophils # (Auto) 0.5 x10^3/uL (0.0-0.7) Basophils # (Auto) 0.1 x10^3/uL (0.0-0.2) Sodium Level 140 mmol/L (136-145) Potassium Level 4.2 mmol/L (3.5-5.1) Chloride Level 101 mmol/L (98-107) Carbon Dioxide Level 34 mmol/L (21-32) Anion Gap 5 (6-14) Blood Urea Nitrogen 8 mg/dL (7-20) Creatinine 0.7 mg/dL (0.6-1.0) Estimated GFR (Cockcroft-Gault) 87.9 Glucose Level 102 mg/dL (70-99) Calcium Level 9.1 mg/dL (8.5-10.1) Total Bilirubin 0.1 mg/dL (0.2-1.0) Direct Bilirubin < 0.1 mg/dL (0.0-0.2) Aspartate Amino Transf (AST/SGOT) 12 U/L (15-37) Alanine Aminotransferase (ALT/SGPT) 21 U/L (14-59) Alkaline Phosphatase 87 U/L (46-116) Troponin I Quantitative < 0.017 ng/mL (0.000-0.055) Total Protein 6.3 g/dL (6.4-8.2) Albumin 3.3 g/dL (3.4-5.0) Lipase 72 U/L (73-393) VTE Prophylaxis Ordered VTE Prophylaxis Devices: Yes VTE Pharmacological Prophylaxi: No Assessment/Plan Assessment/Plan LOW BP in clinic, with multi drugs , may plus UTI possible UTI chronic COPD chronic hypoxic resp failure anxiety fibromyalgia h/o drug cristina with meth, marijuana smoker plan: BP normal now cont ivf ceftriaxone for now cont some home meds albuterol prn observe overnight NS as needed check drug use JOHN GERARD MD Mar 27, 2018 20:33
[2018-03-27] MEDS ORDERED: PROMETH/CODEINE 6.25/10MG 5 ML SYRUP. PO PRN (20:45)
[2018-03-27] MEDS ORDERED: ZOLPIDEM 5 MG TABLET. PO PRN (20:45)
[2018-03-27] MEDS ORDERED: NICOTINE 14MG PATCH. TD PRN (20:45)
[2018-03-27] MEDS ORDERED: ALBUTEROL SULFATE 2.5 MG/3 ML NEBU. NEB PRN (20:45)
[2018-03-27] MEDS: ALBUTEROL SULFATE 2.5 MG/3 ML NEBU. NEB SCH (21:00)
[2018-03-27] MEDS: BUDESONIDE 0.5 MG/2 ML NEBU. NEB SCH (21:00)
[2018-03-27] MEDS ORDERED: NON FORMULARY ITEM (Mometasone/Formoterol (Dulera 200 Mcg/5 Mcg Inhaler) 2 PUFF) IH SCH (21:00)
[2018-03-27] MEDS: CYCLOBENZAPRINE 10 MG TABLET. PO SCH (21:12)
[2018-03-27] MEDS: CIPROFLOXACIN HCL 250 MG TABLET. PO SCH (21:12)
[2018-03-27] MEDS: clonazePAM 0.5 MG TABLET PO SCH (21:12)
[2018-03-27] MEDS: GABAPENTIN 400 MG CAPSULE. PO SCH (21:12)
[2018-03-27 21:37] LABS: AMPHETAMINE/METHAMPHETAMINE POS (NEG); BARBITURATES NEG (NEG); BENZODIAZEPINES POS (NEG); CANNABINOIDS NEG (NEG); COCAINE NEG (NEG); METHADONE NEG (NEG); OPIATES POS (NEG); PHENCYCLIDINE NEG (NEG)
[2018-03-27 23:00] VITALS: BP 104/54
[2018-03-28] MEDS ORDERED: CYAN10002 IM (00:16)
[2018-03-28] MEDS ORDERED: BACL10TA PO (00:16)
[2018-03-28 03:00] VITALS: BP 103/57
[2018-03-28 05:01] LABS: BASO # 0.1 x10^3/uL (0.0-0.2); BASO % 1 % (0-3); EOS # 0.5 x10^3/uL (0.0-0.7); EOS % 5 % (0-3); HEMATOCRIT 40.4 % (36.0-47.0); HEMOGLOBIN 12.9 g/dL (12.0-15.5); LYMPH # 1.8 x10^3/uL (1.0-4.8); LYMPH % 19 % (24-48); MEAN CORPUSCULAR HEMOGLOBIN 28 pg (25-35); MEAN CORPUSCULAR HGB CONC 32 g/dL (31-37); MEAN CORPUSCULAR VOLUME 88 fL (79-100); MONO # 0.9 x10^3/uL (0.0-1.1); MONO % 10 % (0-9); NEUT # 6.3 x10^3uL (1.8-7.7); NEUT % 66 % (31-73); PLATELET COUNT 309 x10^3/uL (140-400); RED CELL DISTRIBUTION WIDTH 17.6 % (11.5-14.5); WHITE BLOOD COUNT 9.6 x10^3/uL (4.0-11.0)
[2018-03-28] MEDS: IV NORMAL SALINE 1000ML BAG 1,000 ML IV SCH ×2 (05:27→12:56)
[2018-03-28 05:35] LABS: CALCIUM 8.2 mg/dL (8.5-10.1); CREATININE 0.6 mg/dL (0.6-1.0); POTASSIUM 4.4 mmol/L (3.5-5.1)
[2018-03-28 07:00] VITALS: BP 99/60
[2018-03-28] MEDS: ALBUTEROL SULFATE 2.5 MG/3 ML NEBU. NEB SCH ×3 (07:45→15:05)
[2018-03-28] MEDS: BUDESONIDE 0.5 MG/2 ML NEBU. NEB SCH (07:45)
[2018-03-28] MEDS: clonazePAM 0.5 MG TABLET PO SCH (08:33)
[2018-03-28] MEDS: GABAPENTIN 400 MG CAPSULE. PO SCH (08:33)
[2018-03-28] MEDS: CIPROFLOXACIN HCL 250 MG TABLET. PO SCH (08:33)
[2018-03-28] MEDS: CYCLOBENZAPRINE 10 MG TABLET. PO SCH ×2 (08:33→12:58)
[2018-03-28 11:00] VITALS: BP 97/62
[2018-03-28] MEDS ORDERED: CIPR250T30 PO (13:10)
--- NOTE | 2018-03-28 13:34 | PDOC3 ---
Discharge Summary Visit Information Date of Admission: Mar 27, 2018 Date of Discharge: Mar 28, 2018 Final Diagnosis hypotension in clinic when ambulatory UTI chronic COPD chronic hypoxic resp failure anxiety d/o fibromyalgia h/o drug use with meth, marijuana tobacco use disorder Problems Medical Problems: (1) Encounter for medical screening examination Status: Acute (2) Low blood pressure Status: Acute (3) UTI (urinary tract infection) Status: Acute Brief Hospital Course Allergies Allergies Coded Allergies Type Severity Reaction Last Updated Verified Penicillins Allergy Intermediate 08/17/17 Yes cefdinir Allergy Intermediate 08/17/17 Yes chlordiazepoxide Allergy Intermediate 03/27/18 Yes clidinium Allergy Intermediate 03/27/18 Yes divalproex sodium Allergy Intermediate 03/27/18 Yes oxycodone HCl Allergy Intermediate 08/16/17 Yes Vital Signs Vital Signs Date Time Temp Pulse Resp B/P (MAP) Pulse Ox O2 Delivery O2 Flow Rate FiO2 03/28/18 11:29 Room Air 03/28/18 11:00 97.9 95 22 97/62 (74) 92 3.0 97.9 Lab Results Laboratory Tests Test 03/27/18 15:21 03/27/18 15:55 03/28/18 03:50 Urine Collection Type Unknown Urine Color Yellow Urine Clarity Clear Urine pH 6.5 Urine Specific [place] 1.010 Urine Protein Negative mg/dL (NEG-TRACE) Urine Glucose (UA) Negative mg/dL (NEG) Urine Ketones (Stick) Negative mg/dL (NEG) Urine Blood Negative (NEG) Urine Nitrite Positive (NEG) Urine Bilirubin Negative (NEG) Urine Urobilinogen Dipstick 0.2 mg/dL (0.2 mg/dL) Urine Leukocyte Esterase Large (NEG) Urine RBC 0 /HPF (0-2) Urine WBC >40 /HPF (0-4) Urine Squamous Epithelial Cells Mod /LPF Urine Bacteria Many /HPF (0-FEW) Urine Hyaline Casts Moderate /HPF Urine Mucus Slight /LPF Urine Opiates Screen Pos (NEG) Urine Methadone Screen Neg (NEG) Urine Barbiturates Neg (NEG) Urine Phencyclidine Screen Neg (NEG) Urine Amphetamine/Methamphetamine Pos (NEG) Urine Benzodiazepines Screen Pos (NEG) Urine Cocaine Screen Neg (NEG) Urine Cannabinoids Screen Neg (NEG) Urine Ethyl Alcohol Neg (NEG) White Blood Count 9.9 x10^3/uL (4.0-11.0) 9.6 x10^3/uL (4.0-11.0) Red Blood Count 4.82 x10^6/uL (3.50-5.40) 4.60 x10^6/uL (3.50-5.40) Hemoglobin 13.9 g/dL (12.0-15.5) 12.9 g/dL (12.0-15.5) Hematocrit 41.6 % (36.0-47.0) 40.4 % (36.0-47.0) Mean Corpuscular Volume 86 fL (79-100) 88 fL (79-100) Mean Corpuscular Hemoglobin 29 pg (25-35) 28 pg (25-35) Mean Corpuscular Hemoglobin Concent 34 g/dL (31-37) 32 g/dL (31-37) Red Cell Distribution Width 17.3 % (11.5-14.5) 17.6 % (11.5-14.5) Platelet Count 305 x10^3/uL (140-400) 309 x10^3/uL (140-400) Neutrophils (%) (Auto) 63 % (31-73) 66 % (31-73) Lymphocytes (%) (Auto) 20 % (24-48) 19 % (24-48) Monocytes (%) (Auto) 11 % (0-9) 10 % (0-9) Eosinophils (%) (Auto) 5 % (0-3) 5 % (0-3) Basophils (%) (Auto) 1 % (0-3) 1 % (0-3) Neutrophils # (Auto) 6.2 x10^3uL (1.8-7.7) 6.3 x10^3uL (1.8-7.7) Lymphocytes # (Auto) 2.0 x10^3/uL (1.0-4.8) 1.8 x10^3/uL (1.0-4.8) Monocytes # (Auto) 1.1 x10^3/uL (0.0-1.1) 0.9 x10^3/uL (0.0-1.1) Eosinophils # (Auto) 0.5 x10^3/uL (0.0-0.7) 0.5 x10^3/uL (0.0-0.7) Basophils # (Auto) 0.1 x10^3/uL (0.0-0.2) 0.1 x10^3/uL (0.0-0.2) Sodium Level 140 mmol/L (136-145) 142 mmol/L (136-145) Potassium Level 4.2 mmol/L (3.5-5.1) 4.4 mmol/L (3.5-5.1) Chloride Level 101 mmol/L (98-107) 105 mmol/L (98-107) Carbon Dioxide Level 34 mmol/L (21-32) 29 mmol/L (21-32) Anion Gap 5 (6-14) 8 (6-14) Blood Urea Nitrogen 8 mg/dL (7-20) 6 mg/dL (7-20) Creatinine 0.7 mg/dL (0.6-1.0) 0.6 mg/dL (0.6-1.0) Estimated GFR (Cockcroft-Gault) 87.9 105.0 Glucose Level 102 mg/dL (70-99) 129 mg/dL (70-99) Calcium Level 9.1 mg/dL (8.5-10.1) 8.2 mg/dL (8.5-10.1) Total Bilirubin 0.1 mg/dL (0.2-1.0) Direct Bilirubin < 0.1 mg/dL (0.0-0.2) Aspartate Amino Transf (AST/SGOT) 12 U/L (15-37) Alanine Aminotransferase (ALT/SGPT) 21 U/L (14-59) Alkaline Phosphatase 87 U/L (46-116) Troponin I Quantitative < 0.017 ng/mL (0.000-0.055) Total Protein 6.3 g/dL (6.4-8.2) Albumin 3.3 g/dL (3.4-5.0) Lipase 72 U/L (73-393) Laboratory Tests Test 03/27/18 15:21 03/27/18 15:55 03/28/18 03:50 Urine Collection Type Unknown Urine Color Yellow Urine Clarity Clear Urine pH 6.5 Urine Specific [place] 1.010 Urine Protein Negative mg/dL (NEG-TRACE) Urine Glucose (UA) Negative mg/dL (NEG) Urine Ketones (Stick) Negative mg/dL (NEG) Urine Blood Negative (NEG) Urine Nitrite Positive (NEG) Urine Bilirubin Negative (NEG) Urine Urobilinogen Dipstick 0.2 mg/dL (0.2 mg/dL) Urine Leukocyte Esterase Large (NEG) Urine RBC 0 /HPF (0-2) Urine WBC >40 /HPF (0-4) Urine Squamous Epithelial Cells Mod /LPF Urine Bacteria Many /HPF (0-FEW) Urine Hyaline Casts Moderate /HPF Urine Mucus Slight /LPF Urine Opiates Screen Pos (NEG) Urine Methadone Screen Neg (NEG) Urine Barbiturates Neg (NEG) Urine Phencyclidine Screen Neg (NEG) Urine Amphetamine/Methamphetamine Pos (NEG) Urine Benzodiazepines Screen Pos (NEG) Urine Cocaine Screen Neg (NEG) Urine Cannabinoids Screen Neg (NEG) Urine Ethyl Alcohol Neg (NEG) White Blood Count 9.9 x10^3/uL (4.0-11.0) 9.6 x10^3/uL (4.0-11.0) Red Blood Count 4.82 x10^6/uL (3.50-5.40) 4.60 x10^6/uL (3.50-5.40) Hemoglobin 13.9 g/dL (12.0-15.5) 12.9 g/dL (12.0-15.5) Hematocrit 41.6 % (36.0-47.0) 40.4 % (36.0-47.0) Mean Corpuscular Volume 86 fL (79-100) 88 fL (79-100) Mean Corpuscular Hemoglobin 29 pg (25-35) 28 pg (25-35) Mean Corpuscular Hemoglobin Concent 34 g/dL (31-37) 32 g/dL (31-37) Red Cell Distribution Width 17.3 % (11.5-14.5) 17.6 % (11.5-14.5) Platelet Count 305 x10^3/uL (140-400) 309 x10^3/uL (140-400) Neutrophils (%) (Auto) 63 % (31-73) 66 % (31-73) Lymphocytes (%) (Auto) 20 % (24-48) 19 % (24-48) Monocytes (%) (Auto) 11 % (0-9) 10 % (0-9) Eosinophils (%) (Auto) 5 % (0-3) 5 % (0-3) Basophils (%) (Auto) 1 % (0-3) 1 % (0-3) Neutrophils # (Auto) 6.2 x10^3uL (1.8-7.7) 6.3 x10^3uL (1.8-7.7) Lymphocytes # (Auto) 2.0 x10^3/uL (1.0-4.8) 1.8 x10^3/uL (1.0-4.8) Monocytes # (Auto) 1.1 x10^3/uL (0.0-1.1) 0.9 x10^3/uL (0.0-1.1) Eosinophils # (Auto) 0.5 x10^3/uL (0.0-0.7) 0.5 x10^3/uL (0.0-0.7) Basophils # (Auto) 0.1 x10^3/uL (0.0-0.2) 0.1 x10^3/uL (0.0-0.2) Sodium Level 140 mmol/L (136-145) 142 mmol/L (136-145) Potassium Level 4.2 mmol/L (3.5-5.1) 4.4 mmol/L (3.5-5.1) Chloride Level 101 mmol/L (98-107) 105 mmol/L (98-107) Carbon Dioxide Level 34 mmol/L (21-32) 29 mmol/L (21-32) Anion Gap 5 (6-14) 8 (6-14) Blood Urea Nitrogen 8 mg/dL (7-20) 6 mg/dL (7-20) Creatinine 0.7 mg/dL (0.6-1.0) 0.6 mg/dL (0.6-1.0) Estimated GFR (Cockcroft-Gault) 87.9 105.0 Glucose Level 102 mg/dL (70-99) 129 mg/dL (70-99) Calcium Level 9.1 mg/dL (8.5-10.1) 8.2 mg/dL (8.5-10.1) Total Bilirubin 0.1 mg/dL (0.2-1.0) Direct Bilirubin < 0.1 mg/dL (0.0-0.2) Aspartate Amino Transf (AST/SGOT) 12 U/L (15-37) Alanine Aminotransferase (ALT/SGPT) 21 U/L (14-59) Alkaline Phosphatase 87 U/L (46-116) Troponin I Quantitative < 0.017 ng/mL (0.000-0.055) Total Protein 6.3 g/dL (6.4-8.2) Albumin 3.3 g/dL (3.4-5.0) Lipase 72 U/L (73-393) Brief Hospital Course Ms. Mckeon is a 52 old sent from clinic fro hypotension, found to have UTI, odd behvaior, UDS showed meth, she admitted recent use, sobriety discussed ongoing tobacco use, Discharge Information Condition at Discharge: Improved Follow Up: Weeks Disposition/Orders: D/C to Home Scheduled Baclofen (Baclofen) 10 Mg Tablet, 2 TAB PO TID, #90 Ref 2 (Reported) Entered as Reported by: BRYAN VIVAR on 03/28/1815 Last Action: New Order on 03/28/1815 by BRYAN VIVAR Ciprofloxacin Hcl (Cipro) 250 Mg Tablet, 250 MG PO BID, #14 Prescribed by: SUMMER BERNARD on 03/28/18 1310 Clonazepam (Clonazepam) 0.5 Mg Tablet, 0.5 MG PO BID, (Reported) Entered as Reported by: SAHLEY FOURNIER on 08/16/171505 Last Action: Continued on 03/27/182024 by JOHN GERARD MD Cyanocobalamin (Vitamin B-12) (Cyanocobalamin Injection) 1,000 Mcg/1 Ml Vial, 1 ML IM QMONTH, #1 Ref 3 (Reported) Entered as Reported by: BRYAN VIVAR on 03/28/1815 Last Action: New Order on 03/28/1815 by BRYAN VIVAR Cyclobenzaprine Hcl (Cyclobenzaprine Hcl) 10 Mg Tablet, 20 MG PO TID, (Reported) Entered as Reported by: ASHLEY FOURNIER on 08/16/171505 Last Action: Continued on 03/27/182024 by JOHN GERARD MD Gabapentin (Gabapentin) 800 Mg Tablet, 800 MG PO BID, (Reported) Entered as Reported by: STEVO BO on 09/29/13 5851 Last Action: Converted on 03/27/182024 by JOHN GERARD MD Mometasone/Formoterol (Dulera 200 Mcg/5 Mcg Inhaler) 13 Gm Hfa.aer.ad, 2 PUFF IH BID, #13 Ref 5 (Reported) Entered as Reported by: BRYAN VIVAR on 03/27/182005 Last Action: Converted on 03/27/182024 by JOHN GERARD MD Scheduled PRN Albuterol Sulfate (Ventolin Hfa) 8 Gm Hfa.aer.ad, 1 GM IH PRN Q6-8HRS PRN for SHORTNESS OF BREATH, (Reported) Entered as Reported by: BRYAN VIVAR on 03/27/182005 Last Action: Continued on 03/27/182024 by JOHN GERARD MD Hydrocodone Bit/Acetaminophen (Hydrocodone-Apap 5-325 ) 1 Each Tablet, 1 TAB PO PRN Q12HRS PRN for PAIN, Ref 0 (Reported) Entered as Reported by: ASHLEY FOURNIER on 08/16/171505 Last Action: HELD on 03/27/182024 by JOHN GERARD MD Promethazine Hcl/Codeine (Promethazine-Codeine Syrup) 118 Ml Syrup, 5 ML PO PRN Q6HRS PRN for COUGH, #120 (Reported) Entered as Reported by: ASHLEY FOURNIER on 08/16/171505 Last Action: Converted on 03/27/182024 by JOHN GERARD MD Tramadol Hcl (Tramadol Hcl) 50 Mg Tablet, 1 TAB PO PRN Q8HRS PRN for PAIN, #30 ( Reported) Entered as Reported by: ASHLEY FOURNIER on 08/16/171505 Last Action: Continued on 03/27/182024 by JOHN GERARD MD Patient Instructions Patient Instructions > 30 min face to face SUMMER BERNARD MD Mar 28, 2018 13:34
[2018-03-28 15:00] VITALS: BP 96/61
--- NOTE | 2018-03-30 09:49 | EKG ---
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
== END 2018-03-28 18:00 | disposition home or self-care (01) | DRG 315 ==
LOC: ER 14:25 → 5 SOUTH 17:20
PROVIDERS: ADMIT Internal Medicine; ATTEND Internal Medicine
DX: I95.9 Hypotension, unspecified (principal); N39.0 Urinary tract infection, site not specified; J96.11 Chronic respiratory failure with hypoxia; F17.210 Nicotine dependence, cigarettes, uncomplicated; F41.0 Panic disorder [episodic paroxysmal anxiety]; I50.9 Heart failure, unspecified; J44.9 Chronic obstructive pulmonary disease, unspecified; M79.7 Fibromyalgia; G89.29 Other chronic pain; Z99.81 Dependence on supplemental oxygen; Z82.49 Family history of ischemic heart disease and other diseases of the circulatory system; Z87.01 Personal history of pneumonia (recurrent); Z88.5 Allergy status to narcotic agent; Z88.0 Allergy status to penicillin; Z88.8 Allergy status to other drugs, medicaments and biological substances; Z79.899 Other long term (current) drug therapy
CPT/HCPCS: 36415; 71045; 80048; 80076; 80307; 81001; 83690; 84484; 85025; 87086; 90471; 90756; 93005; 94640; 94760; 96360; 99406; J7030; J7040; J7613; J7626; 99285-25; G0479; Q2035